=== PATIENT | female | born 1965 | race Caucasian/White ===

== ENCOUNTER 2019-01-25 06:00 | Day surgery (SDC) | payer OTHER ==
[~2019-01-25 06:00] MED LIST: QUETIAPINE FUM400 M1 PO; ZOLOFT100 MG PO
== END 2019-01-25 17:10 | disposition home or self-care (01) ==
LOC: CIR.AMB 06:00 → ADM 09:15 → CIR.AMB 17:10
DX: N84.0 Polyp of corpus uteri (principal)